=== PATIENT | female | born 2000 | race Hispanic/Latino ===

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

== ENCOUNTER 2022-10-04 17:33 | Emergency (ER) | payer BC ==
[~2022-10-04] VITALS: Ht 165.1 cm; Wt 75.0 kg
[~2022-10-04 17:33] MED LIST changes: +PERCOCET 5/325M1 TAB PO
[2022-10-04 19:20] VITALS: BP 110/73
[2022-10-04 19:30] VITALS: BP 105/62
[2022-10-04 19:46] VITALS: BP 123/84
[2022-10-04 20:00] VITALS: BP 124/78
[2022-10-04] MEDS ORDERED: SULFACET SOD10 % OS (20:01)
[2022-10-04 20:16] VITALS: BP 116/64
[2022-10-05] MEDS ORDERED: SULFACET SOD10 % OS (14:42)
== END 2022-10-04 20:28 | disposition home or self-care (01) | DRG 125 ==
LOC: ED 17:33
DX: H10.32 Unspecified acute conjunctivitis, left eye (principal)

== ENCOUNTER 2022-10-23 19:41 | Emergency (ER) | payer SELFPAY ==
[~2022-10-23] VITALS: Ht 165.1 cm; Wt 75.0 kg
[~2022-10-23 19:41] MED LIST changes: +SULFACET SOD10 % OS
[2022-10-23 22:55] VITALS: BP 119/76
== END 2022-10-23 22:55 | disposition home or self-care (01) | DRG 605 ==
LOC: ED 19:41
DX: S60.012A Contusion of left thumb without damage to nail, initial encounter (principal); W23.0XXA Caught, crushed, jammed, or pinched between moving objects, initial encounter

== ENCOUNTER 2023-11-04 21:30 | Emergency (ER) | payer OTHER ==
[~2023-11-04] VITALS: Ht 165.1 cm; Wt 80.0 kg
[2023-11-04 22:15] VITALS: BP 111/76
[2023-11-04 22:30] VITALS: BP 115/69
[2023-11-04 22:45] VITALS: BP 135/83
[2023-11-04 23:01] VITALS: BP 107/70
[2023-11-05] MEDS ORDERED: IBUPROFEN600 MG PO (03:58)
[2023-11-05] MEDS ORDERED: METHOCARBAMOL500 MG PO (03:58)
[2023-11-05 04:05] VITALS: BP 107/70
== END 2023-11-05 04:15 | disposition home or self-care (01) | DRG 552 ==
LOC: ED 21:30
DX: M62.830 Muscle spasm of back (principal); V49.40XA Driver injured in collision with unspecified motor vehicles in traffic accident, initial encounter